=== PATIENT | male | born 1940 | race Caucasian/White ===

== ENCOUNTER 2021-02-24 11:23 | Inpatient (IN) | payer BC, MEDICARE, OTHER ==
[~2021-02-24] VITALS: Ht 177.8 cm; Wt 83.9 kg
--- NOTE | 2021-02-24 11:36 | NUR ---
Patient [id number] from urgent care c/o generalized weakness x 10 days. Patient is alert and oriented x4. Denies any pain at this time. Will continue to monitor.
[2021-02-24 11:53] LABS: BASOPHILS % (AUTO) 0.2 % (0.0-2.0); EOSINOPHILS % (AUTO) 0.4 % (0.0-6.0); HEMATOCRIT 39 % (39-51); HEMOGLOBIN 13.1 g/dL (13.5-17.5); LYMPHOCYTES # (AUTO) 0.3 K/uL (0.8-4.8); LYMPHOCYTES % (AUTO) 3.5 % (20.0-44.0); MEAN CORPUSCULAR HGB CONC 34 g/dl (31.0-36.0); MEAN CORPUSCULAR VOLUME 91 fL (80-96); MONOCYTES # (AUTO) 0.5 K/uL (0.1-1.30); MONOCYTES % (AUTO) 6.3 % (2.0-12.0); NEUTROPHILS # (AUTO) 7.2 K/uL (1.8-8.9); NEUTROPHILS % (AUTO) 89.6 % (43.0-81.0); PLATELET COUNT (AUTO) 217 K/uL (150-450); RED BLOOD CELL COUNT(AUTO) 4.22 MIL/uL (4.5-6.0)
[2021-02-24 12:08] LABS: CARBON DIOXIDE 21 mmol/L (21-32); CHLORIDE 96 mmol/L (98-107); CREATININE 1.9 mg/dL (0.6-1.3); GLUCOSE 218 mg/dL (74-106); POTASSIUM 4.7 mmol/L (3.5-5.1); SODIUM SERUM 131 mmol/L (136-145); UREA NITROGEN, BLOOD 34 mg/dL (7-18)
[2021-02-24] MEDS ORDERED: GLIM2TAB31 PO (12:25)
[2021-02-24] MEDS ORDERED: ATOR20TA PO (12:25)
[2021-02-24] MEDS ORDERED: LISI2.5T2 PO (12:25)
[2021-02-24] MEDS ORDERED: METF-881 PO (12:25)
[2021-02-24] MEDS ORDERED: NITROGLYCERIN PACKET 1 GM PACKET ONE (12:48)
[2021-02-24] MEDS ORDERED: ASPIRIN 325 MG TABLET ONE (12:48)
--- NOTE | 2021-02-24 12:57 | NUR ---
MOVE SHEET SUBMITTED.
[2021-02-24] MEDS ORDERED: ASPIRIN 325 MG TABLET PO ONE (13:00)
[2021-02-24] MEDS ORDERED: NITROGLYCERIN PACKET 1 GM PACKET TD ONE (13:00)
--- NOTE | 2021-02-24 13:01 | NUR ---
COVID SWAB DONE AND SENT TO LAB
--- NOTE | 2021-02-24 13:52 | NUR ---
[facility] CALLED CNC FIELD SERVICE ENGINEER PAGED.
[2021-02-24] MEDS ORDERED: MAGNESIUM HYDROXIDE 30 ML UDC PO PRN (14:30)
[2021-02-24] MEDS ORDERED: ZOLPIDEM TARTRATE 5 MG TABLET PO PRN (14:30)
[2021-02-24] MEDS ORDERED: ACETAMINOPHEN 325 MG TABLET PO PRN (14:30)
[2021-02-24] MEDS ORDERED: HEPARIN INFUSION/D5W 500 ML IV PRN (14:30)
[2021-02-24] MEDS ORDERED: MAG HYDROX/AL HYDROX/SIMETH 30 ML UDC PO PRN (14:30)
[2021-02-24] MEDS ORDERED: Z GUARD REMEDY 2 OZ OINT TP PRN (14:30)
[2021-02-24] MEDS ORDERED: IV 1/2NS 1000 ML 1,000 ML IV PRN (14:30)
[2021-02-24] MEDS ORDERED: ONDANSETRON HCL/PF 4 MG/2 ML VIAL IVP PRN (14:30)
--- NOTE | 2021-02-24 14:50 | NUR ---
ASKED FOR BED ASSIGNMENT.
[2021-02-24] MEDS ORDERED: ASPIRIN 81 MG TAB.CHEW PO ONE (15:00)
--- NOTE | 2021-02-24 15:21 | NUR ---
GOT BED 312-2
--- NOTE | 2021-02-24 15:33 | NUR ---
urine collected and sent to the lab
[2021-02-24 15:52] LABS: BILIRUBIN,URINE SMALL (NEGATIVE); COLOR,URINE YELLOW (YELLOW); LEUKOCYTE ESTERASE ,URINE NEGATIVE (NEGATIVE); NITRITE, URINE NEGATIVE (NEGATIVE); PH,URINE 5.5 (5.0-8.0); PROTEIN,URINE 30 mg/dl (NEGATIVE); UGLUCOSE NEGATIVE (NEGATIVE); UROBILINOGEN,URINE 0.2 EU/dL (0.2)
[2021-02-24 15:58] LABS: BACTERIA,URINE 2+ /HPF (None Seen); COARSE GRANULAR CASTS,URINE RARE /LPF (None Seen); HYALINE CASTS, URINE Few /LPF (None Seen)
--- NOTE | 2021-02-24 16:51 | NUR ---
report given to nurse bruno
--- NOTE | 2021-02-24 17:49 | NUR ---
THE PATIENT IS TRANSFERED TO [facility] IN STABLE CONDITION AND PER ACLS POLICY.
[2021-02-24] MEDS ORDERED: HEPARIN SODIUM, PORCINE 5000 UNITS/1 ML VIAL IV ONE (18:00)
--- NOTE | 2021-02-24 18:10 | NUR ---
CUSTOMER RELATIONS ASSISTANT NOTE PATIENT HAD ASA GIVEN AT ER PRIOR TO TRANSFER ENDORSED.
--- NOTE | 2021-02-24 18:10 | NUR ---
SHEET ROCK NAILER NOTE PATIENT ADMITTED FROM ER, TRANSPORTED ON A GURNEY, ACCOMPANIED BY 2 NURSES. PATIENT TRANSFERRED ON BED AND COMFORT MEASURES PROVIDED. ON MODERATE TO HIGH BACK REST. COMFORT MEASURES PROVIDED. PATIETN WITH IV ACCESS ON LEFT FA G18. PATIETN IS A/O X 4 WITH NO SIGNS OF DISTRESS. PATIENT STARTED ON HEPARIN DRIP ORDERED AND VERIFIED BY CHARGE NURSE SARA AND PHARMACY. ADMINISTERED BOLUS OF HEPARIN ORDERED. NO SIGNS AND SYMPTOMS OF BLEEDING NOTED. WILL CONTINUE TO MONITOR PATIENT.
--- NOTE | 2021-02-24 19:00 | NUR ---
CONTRACT NEGOTIATION SPECIALIST NOTE PATIENT ALERT/ ORIENTED WITH NO SGINS OF DISTESS. MAINTAINED ON MODERATE TO HIGH BACK REST. WITH LEFT FA G 18 WITH HEPARIN DRIP INFUSING WELL. NO COMPLAIN OF PAIN OF DISCOMFORT. ENCOURAGED TO DO DEEP BREATHIGN EXERCISES. NOT IN DISTRESS. ENDORSED TO NEXT SHIFT FOR CONTINUITY OF CARE.
[2021-02-24 20:00] VITALS: BP 119/72
[2021-02-24] MEDS: IV NS 0.9% 1,000 ML IV SCH (20:41)
[2021-02-24] MEDS ORDERED: MORPHINE SULFATE INJ 2 MG/ML DISP.SYRIN IV PRN (21:00)
[2021-02-24] MEDS: ATORVASTATIN 10 MG TABLET PO SCH (21:54)
[2021-02-25] VITALS (20 sets, daily range): BP systolic 92–146; BP diastolic 38–76
[2021-02-25 03:58] LABS: BASOPHILS % (AUTO) 0.3 % (0.0-2.0); HEMATOCRIT 40 % (39-51); HEMOGLOBIN 14.1 g/dL (13.5-17.5); LYMPHOCYTES # (AUTO) 0.3 K/uL (0.8-4.8); LYMPHOCYTES % (AUTO) 7.8 % (20.0-44.0); MEAN CORPUSCULAR HGB CONC 35 g/dl (31.0-36.0); MEAN CORPUSCULAR VOLUME 91 fL (80-96); MONOCYTES # (AUTO) 0.4 K/uL (0.1-1.30); MONOCYTES % (AUTO) 10.2 % (2.0-12.0); NEUTROPHILS # (AUTO) 3.1 K/uL (1.8-8.9); NEUTROPHILS % (AUTO) 79.7 % (43.0-81.0); PLATELET COUNT (AUTO) 203 K/uL (150-450); RED BLOOD CELL COUNT(AUTO) 4.43 MIL/uL (4.5-6.0); WHITE BLOOD COUNT (AUTO) 3.9 K/uL (4.3-11.0)
[2021-02-25 04:21] LABS: ALANINE AMINOTRANSFERASE 67 U/L (12-78); ALKALINE PHOSPHATASE 46 U/L (46-116); ASPARTATE AMINOTRANSFERASE 89 U/L (15-37); BILIRUBIN,TOTAL 0.4 mg/dL (0.2-1.0); CARBON DIOXIDE 26 mmol/L (21-32); CHLORIDE 91 mmol/L (98-107); CREATININE 1.8 mg/dL (0.6-1.3); GLUCOSE 125 mg/dL (74-106); MAGNESIUM 2.9 mg/dL (1.8-2.4); PHOSPHORUS 3.3 mg/dL (2.5-4.9); POTASSIUM 4.4 mmol/L (3.5-5.1); SODIUM SERUM 128 mmol/L (136-145); TOTAL PROTEIN, SERUM 7.6 g/dL (6.4-8.2)
[2021-02-25 04:26] LABS: CHOLESTEROL 74 mg/dL (<200); HDL CHOLESTEROL 29 mg/dL (40-60); LDL 23 mg/dL (0-99); THYROID STIMULATING HORMONE 0.665 uIU/mL (0.358-3.74); TRIGLYCERIDES 113 mg/dL (30-150)
[2021-02-25 04:47] LABS: UREA NITROGEN, BLOOD 39 mg/dL (7-18)
--- NOTE | 2021-02-25 05:40 | NUR ---
REFRIGERATION UNIT REPAIRER NOTES TROP 1.471. PT CURRENTLY ON HEPARIN DRIP. PT DENIES ANY CHEST PAIN OR DISCOMFORT AT THIS TIME. DR. VILLAVICENCIO NOTIFIED RE CRITICAL LAB RESULTS. WITH NEW ORDERS TO NOTIFY CARDIO IN AM. WILL CONTINUE TO MONITOR.
--- NOTE | 2021-02-25 06:30 | NUR ---
TOBACCO ROLLER NOTES AWAKE & RESPONSIVE. NOT IN ANY DISTRESS. NO SOB NOTED. DENIES ANY PAIN OR DISCOMFORT AT THIS TIME. WITH HEPARIN DRIP INFUSING WELL. MONITORED ACCORDINGLY. CALL LIGHT WITHIN REACH. BED IN LOWEST POSITION. SR UP X 2 FOR SAFETY. WILL ENDORSE TO NEXT SHIFT. Addendum: 02/25/21 at 0730 by SIERRA KINCAID RN ON TELE SR @ 90
--- NOTE | 2021-02-25 08:16 | NUR ---
ROUTE RELIEF DRIVER OPENING NOTES RECEIVED PATIENT IN BED, AWAKE, A/O X4. PATIENT ON OXYGEN THERAPY @2 LPM VIA NASAL CANNULA; BREATHING EVEN AND UNLABORED AT THIS TIME. NO COMPLAINS OF PAIN. ON HEPARIN DRIP AT THIS TIME. SAFETY PRECAUTIONS IN PLACE; BED IN LOW POSITION AND LOCKED, RAILS UP X2, CALL LIGHT WITHIN REACH. WILL CONTINUE TO MONITOR PATIENT.
[2021-02-25] MEDS: ASPIRIN 81 MG TAB.CHEW PO SCH (08:26)
[2021-02-25] MEDS: IV NS 0.9% 1,000 ML IV SCH ×3 (08:27→18:12)
[2021-02-25] MEDS ORDERED: LIDOCAINE HCL/MPF 1% 30 ML VIAL IJ ONE (08:36)
[2021-02-25] MEDS ORDERED: IV SET PRIMARY PUMP SET 1 EA INFUS.SET MC ONE (08:36)
[2021-02-25] MEDS ORDERED: IODIXANOL 150 ML IV ONE (08:36)
[2021-02-25] MEDS ORDERED: IV NS 0.9% 1,000 ML ONE (08:36)
[2021-02-25] MEDS ORDERED: NITROGLYCERIN IN 5 % DEXTROSE 250 ML IV ONE (09:12)
[2021-02-25] MEDS ORDERED: MIDAZOLAM HCL 2 MG/2ML VIAL ONE (09:12)
[2021-02-25] MEDS ORDERED: FENTANYL PF 100MCG/2ML AMPUL ONE (09:12)
--- NOTE | 2021-02-25 09:22 | NUR ---
BONE CHAR KILN OPERATOR NOTES PATIENT TAKEN FOR CARDIAC CATH
[2021-02-25] MEDS ORDERED: HEPARIN SODIUM, PORCINE 5000 UNITS/1 ML VIAL ONE (10:14)
[2021-02-25] MEDS ORDERED: HEPARIN SODIUM, PORCINE 1,000 UNIT/ML VIAL ONE ×2 (10:14→10:38)
[2021-02-25] MEDS ORDERED: IODIXANOL 320MG/ML 50 ML IV ONE ×2 (10:14→10:43)
[2021-02-25] MEDS ORDERED: IV NS 0.9% 500 ML IV ONE (10:29)
[2021-02-25] MEDS ORDERED: PHENYLEPHRINE 10 MG/ML VIAL ONE (10:44)
[2021-02-25] MEDS ORDERED: TICAGRELOR 90 MG TABLET PO ONE (10:52)
[2021-02-25] MEDS: METOPROLOL TARTRATE 50 MG TABLET PO SCH ×3 (11:23→18:00)
--- NOTE | 2021-02-25 11:23 | NUR ---
CLAUDIA VO NOTES 1200 LOPRESSOR NON-ADMINISTERED DUE TO PATIENT BEING GONE FOR CARDIAC CATH. Addendum: 02/25/21 at 1156 by SONIA MOREAU RN CLAUDIA VO NOTES NON-ADMIN UNDONE. PATIENT IS ALREADY IN ICU AND DONE WITH PROCEDURE.
--- NOTE | 2021-02-25 11:30 | NUR ---
RN NOTES PATIENT TRANSFERRED FROM POST CARDIAC AND PERIPHERAL CATHETERIZATION GRADER TENDER AT THIS TIME. 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 TRA BAND ON RIGHT ARM, AND DRESSING ON RIGHT GROIN AREA SOFT TO TOUCH, DRESSING INTACT , NO BLEEDING, PULSE IS PRESENT.KEEP BEDREST X2HR. MAY ELEVATE HOB TO 10 DEGREES, PROGRESS TO 30 DEGREE AFTER 1 HR. RELEASE TRA BAND AIR 14CC 2 TO 5 CC AFTER 2 HR, WATCH BLEEDING. PATIENT COMPLAINING OF MILD HEADACHE, VS TAKEN P-86, BP-129/60, P-93%RA, T-98.8. bS-122 MG/DL. INFUSING NS AT 100 ML/HR ON LEFT AC AREA INTACT. CALL LIGHT WITHIN TO REACH.WILL MONITORING.
--- NOTE | 2021-02-25 11:56 | NUR ---
COMPUTER GAME TESTERTUBERCULOSIS SPECIALIST NOTES PATIENT IN ICU AFTER CARDIAC CATH. REPORT GIVEN TO TAVO LAUGHLIN. BELONGINGS TAKEN TO ICU.
--- NOTE | 2021-02-25 13:40 | NUR ---
RN NOTES REMOVED 2 CC OF AIR AT THIS TIME, PULSE IS PRESENT, NO BLEEDING, CHECKED ON RIGHT GROIN AREA DRESSING INTACT PULSE IS PRESENT PATIENT ON SUPINE POSITION., REFUSED PAIN. BS-123MG/DL. WILL MONITORING.
--- NOTE | 2021-02-25 14:05 | NUR ---
RN NOTES REMOVED 3ML OF AIR., NO BLEEDING, PULSE IS PRESENT ON RIGHT REDIAL, AND RIGHT GROIN AREA. ELEVATED HEAD ON 10 DEGREE. PATIENT EATING LUNCH.
--- NOTE | 2021-02-25 15:00 | NUR ---
RN NOTES REMOVED 3 ML OF AIR. PATIENT STABLE NO BLEEDING, PULSE IS PRESENT ON RIGHT REDIA, AND GROIN AREA.
--- NOTE | 2021-02-25 15:40 | NUR ---
RN NOTES FULL PULSE IS PRESENT RIGHT GROIN, AND RIGHT REDIAL AREA, NO BLEEDING REMOVED 5 CC OF AIR.
--- NOTE | 2021-02-25 16:00 | NUR ---
RN NOTES REMOVED 1 CC OF AIR. NO BLEEDING NOTED DRESSING INTACT, FULL PULSE IS PRESENT RIGHT REDIAL, AND RIGHT GROIN AREA. PATIENT STABLE REFUSED PAIN. INFUSING NS @ 100 ML/HR ON LEFT AC AREA INTACT. PATIENT USING URINAL.
--- NOTE | 2021-02-25 16:30 | NUR ---
RN NOTES REMOVED TR BAND AT THIS TIME, NO BLEEDING NOTED, APPLIED TRANSPARENT DRESSING. SURROUNDING SOFT, FULL PULSE IS PRESENT ON RIGHT REDIAL, AND RIGHT GROIN AREA. NEXT TO THE BED.
[2021-02-25] MEDS: BLOOD SUGAR DIAGNOSTIC 1 EACH STRIP IN SCH ×2 (16:34→21:31)
--- NOTE | 2021-02-25 18:30 | NUR ---
RN NOTES BS-130MG/DL, PATIENT TOLERATED DINNER 25%, REFUSED PAIN, NO BLEEDING, PULSE IS PRESENT ON RIGHT REDIAL, AND RIGHT GROIN AREA. HELD BP MEDICATION BECAUSE OF BP 107/53, P-80. CALL LIGHT WITHIN TO REACH. ENDORSED ONCOMING NURSE WENDY.
--- NOTE | 2021-02-25 19:30 | NUR ---
RN NOTE RECEIVED PT IN BED IN SUPINE POSITION A/O X 3, ON ROOM AIR NO S/S OF RESP. DISTRESS. PT DENIES ANY PAIN OR DISCOMFORT AT THIS TIME. SR ON THE MONITOR, IV TO LAC PATENT AND INTACT FLUSHING WELL. RIGHT GROIN AREA DRESSING DRY AND INTACT. SIDE RAILS UP X 2, BED LOCKED AND IN THE LOWEST POSITION, CALL LIGHT WITHIN REACH WILL CONTINUE TO MONITOR PT.
[2021-02-25] MEDS ORDERED: IV NS 0.9% 1,000 ML IV SCH (20:00)
[2021-02-25] MEDS: ATORVASTATIN 10 MG TABLET PO SCH (21:21)
[2021-02-26] VITALS (16 sets, daily range): BP systolic 96–124; BP diastolic 44–81
--- NOTE | 2021-02-26 00:31 | NUR ---
RN NOTE LOPRESSOR HELD SBP 101/55.
[2021-02-26 04:44] LABS: EOSINOPHILS % (AUTO) 3.6 % (0.0-6.0); HEMATOCRIT 35 % (39-51); LYMPHOCYTES # (AUTO) 0.6 K/uL (0.8-4.8); LYMPHOCYTES % (AUTO) 30.3 % (20.0-44.0); MEAN CORPUSCULAR HGB CONC 35 g/dl (31.0-36.0); MEAN CORPUSCULAR VOLUME 91 fL (80-96); MONOCYTES # (AUTO) 0.5 K/uL (0.1-1.30); MONOCYTES % (AUTO) 26.4 % (2.0-12.0); NEUTROPHILS # (AUTO) 0.8 K/uL (1.8-8.9); NEUTROPHILS % (AUTO) 38.7 % (43.0-81.0); PLATELET COUNT (AUTO) 149 K/uL (150-450); RED BLOOD CELL COUNT(AUTO) 3.83 MIL/uL (4.5-6.0)
[2021-02-26 05:03] LABS: ALBUMIN 2.3 g/dL (3.4-5.0); BILIRUBIN,TOTAL 0.4 mg/dL (0.2-1.0); CALCIUM, SERUM 7.2 mg/dL (8.5-10.1); CREATININE 1.3 mg/dL (0.6-1.3); MAGNESIUM 2.5 mg/dL (1.8-2.4); PHOSPHORUS 3.4 mg/dL (2.5-4.9); POTASSIUM 4.3 mmol/L (3.5-5.1); TOTAL PROTEIN, SERUM 6.4 g/dL (6.4-8.2)
[2021-02-26 05:23] LABS: BAND % (MANUAL) 20 % (0.0-5.0); BASOPHILS % (MANUAL) 0 % (0.0-2.0); EOSINOPHILS % (MANUAL) 5 % (0-4); LYMPHOCYTES % (MANUAL) 14 % (16-48); MONOCYTES % (MANUAL) 28 % (0-11.0); NEUTROPHILS % (MANUAL) 32 (42-76)
[2021-02-26] MEDS: METOPROLOL TARTRATE 50 MG TABLET PO SCH ×2 (06:00)
--- NOTE | 2021-02-26 06:19 | NUR ---
RN NOTE PT ABLE TO AMBULATE WITHOUT DIFFICULTY DENIES ANY PAIN OR SOB. DR. HURT NOTIFIED, PER MD PT OKAY TO BE DISCHARGED.
[2021-02-26] MEDS ORDERED: METOPROLOL SUCCINATE 50 MG TAB.SR.24H PO SCH (07:00)
--- NOTE | 2021-02-26 07:30 | NUR ---
ICU/WARP DOFFER RECIEVED REPORT FROM DAY NURSE. SEE FLOWSHEET FOR ASSESSMENT. NO IVF TO ADDRESS. CALL LIGHT WITHIN REACH.
[2021-02-26] MEDS: BLOOD SUGAR DIAGNOSTIC 1 EACH STRIP IN SCH (07:32)
[2021-02-26] MEDS: ASPIRIN 81 MG TAB.CHEW PO SCH (08:57)
[2021-02-26] MEDS ORDERED: TICAGRELOR 90 MG TABLET PO SCH (09:00)
--- NOTE | 2021-02-26 09:18 | NUR ---
ICU/UTILIZATION COORDINATOR PT TO SIT IN CHAIR TO EAT BREAKFAST. PT WAS THEN GIVEN AM MEDS. ASST PT BACK TO BED. MD SEEN PT. MADE AWARE DR LEE HAD D/C THIS PT.
--- NOTE | 2021-02-26 12:00 | NUR ---
ICU/[place]TER PT WAS GIVEN DISCHARGE INSTRUCTIONS, ALONG WITH THE PRESCRIPTION TO THE [place]. PT VERBALIZED THE INSTRUCTIONS GIVEN. PT VERBALIZED THAT HE WILL FOLLOW UP WITH HIS WOOD CARVER HAND IN 2 WEEKS AND PRIMARY MD IN A WEEK. PT ALSO VERBALIZED THE DISCHARGE SUMMARY ALONG WITH THE TEACHING. PT WAS WHEELED OUT TO CAR. SIGNED THE D/C PAPERS, BELONGING PAPERS, ALL IV HL WERE D/C'D.
== END 2021-02-26 12:34 | disposition home or self-care (01) | DRG 246 ==
LOC: ER 11:31 → TELE 16:20 → ICU 02-25 11:40
PROVIDERS: ADMIT Internal Medicine; ATTEND Internal Medicine
PROC: 4A023N7 Measurement of Cardiac Sampling and Pressure, Left Heart, Percutaneous Approach (ICD-10-PCS; principal; 2021-02-25)
PROC: 02C03ZZ Extirpation of Matter from Coronary Artery, One Artery, Percutaneous Approach (ICD-10-PCS; 2021-02-25)
PROC: B211YZZ Fluoroscopy of Multiple Coronary Arteries using Other Contrast (ICD-10-PCS; 2021-02-25)
PROC: B215YZZ Fluoroscopy of Left Heart using Other Contrast (ICD-10-PCS; 2021-02-25)
PROC: B44FZZZ Ultrasonography of Right Lower Extremity Arteries (ICD-10-PCS; 2021-02-25)
PROC: B34HZZZ Ultrasonography of Right Upper Extremity Arteries (ICD-10-PCS; 2021-02-25)
PROC: 027034Z Dilation of Coronary Artery, One Artery with Drug-eluting Intraluminal Device, Percutaneous Approach (ICD-10-PCS; 2021-02-25)
PROC: B41FYZZ Fluoroscopy of Right Lower Extremity Arteries using Other Contrast (ICD-10-PCS; 2021-02-25)
DX: I21.4 Non-ST elevation (NSTEMI) myocardial infarction (principal); N17.0 Acute kidney failure with tubular necrosis; E87.1 Hypo-osmolality and hyponatremia; D61.818 Other pancytopenia; J98.11 Atelectasis; I10 Essential (primary) hypertension; E11.9 Type 2 diabetes mellitus without complications; E86.1 Hypovolemia; E78.5 Hyperlipidemia, unspecified; Z79.84 Long term (current) use of oral hypoglycemic drugs; Z79.899 Other long term (current) drug therapy; I67.2 Cerebral atherosclerosis; I70.0 Atherosclerosis of aorta
CPT/HCPCS: 36415; 70450-TC; 71045-TC; 76770-TC; 80048-TC; 80053-TC; 80061-TC; 81001; 82962-TC; 83735-TC; 83880; 84100-TC; 84443-TC; 84484-TC; 85025-TC; 85347; 85652-TC; 85730-TC; 87081-TC; 87086-TC; 92980; 93307-TC; C1725; C1769; C1887; C9803; G0378; G0500; J1644; J2250; J2370; J3010; J3490; J7030; J7040; Q9967